=== PATIENT | female | born 1995 | race Two or more races ===

== ENCOUNTER 2017-09-30 06:00 | Day surgery (SDC) | payer OTHER ==
[2017-09-30] MEDS ORDERED: COLACE100 MG PO (08:29)
[2017-09-30] MEDS ORDERED: ULTRAM50 MG PO (08:29)
== END 2017-09-30 08:00 | disposition home or self-care (01) ==
LOC: CIR.AMB 06:00 → SURH 18:18 → O/R 18:18
DX: D27.0 Benign neoplasm of right ovary (principal); D27.1 Benign neoplasm of left ovary; R87.613 High grade squamous intraepithelial lesion on cytologic smear of cervix (HGSIL)